=== PATIENT | female | born 1930 | race Caucasian/White ===

== ENCOUNTER → 2017-07-11 | Outpatient (CLI) | payer OTHER, MEDICARE | LOC: FIMAGING 08:17 | PROVIDERS: ATTEND Internal Medicine | DX: M51.36 Other intervertebral disc degeneration, lumbar region (principal); M51.34 Other intervertebral disc degeneration, thoracic region; M51.27 Other intervertebral disc displacement, lumbosacral region; M99.73 Connective tissue and disc stenosis of intervertebral foramina of lumbar region ==

== ENCOUNTER → 2017-11-06 | Outpatient (CLI) | payer OTHER, MEDICARE | LOC: BMCIMAGING 12:19 | PROVIDERS: ATTEND Internal Medicine | DX: M46.96 Unspecified inflammatory spondylopathy, lumbar region (principal) ==

== ENCOUNTER 2017-11-09 11:16 | Emergency (ER) | payer OTHER, MEDICARE ==
--- NOTE | 2017-11-09 13:00 | EDPHY ---
H & P Stated Complaint: pelvic pain Time Seen by Provider: 11/09/17 12:34 HPI/ROS: CHIEF COMPLAINT: Buttock and hip pain HISTORY OF PRESENT ILLNESS: 87-year-old female lives by herself at the [facility] that 4 days ago she was with family members at a family affair, sustained a purely mechanical fall when she tripped on her dog landing on her buttock. This was not a syncopal episode. This was witnessed by family members who are here with her. There is no head injury. The next day she complained of lower back pain was seen at [facility] had negative lumbar spine x-rays and discharged. Family has been staying with her at her independent living facility. Patient complaining of inferior buttock pain and hip pain ever since. She is able to bear weight albeit with pain. She is requesting imaging and analgesia. PRIMARY CARE PROVIDER: Dr. Pascual Julien REVIEW OF SYSTEMS: A ten point review of systems was performed and is negative with the exception of the items mentioned in the HPI PAST MEDICAL/SURGICAL HISTORY: no anticoagulant use, no relevant medical/ surgical history SOCIAL HISTORY: Lives at the independent living facility at [facility] PHYSICAL EXAM 1) GENERAL: Well-developed, well-nourished, alert and oriented. Appears to be in no acute distress. Answering questions appropriately. 2) HEAD: Normocephalic, atraumatic 3) HEENT: Pupils equal, round, reactive to light bilaterally. Negative Horners. Nasopharynx, oropharynx, clear. No deformity or angulation of nose. No septal hematoma. No rhinorrhea. No oral trauma. Ears bilaterally with normal tympanic membranes. No hemotympanum. No fluid or blood in the external auditory canal. No raccoon eyes. No Cordero sign. 4) NECK: No cervical collar is on. Posterior cervical spine is nontender, no stepoff, no effusion. Full range of motion which does not elicit any midline cervical spine pain, no posterior midline tenderness, no step-off. 5) LUNGS: Clear to auscultation bilaterally, no wheezes, no rhonchi, no retractions. No obvious signs of trauma. No chest wall pain. No flaring, no grunting. Moving symmetrically. No crepitus. 6) HEART: [Regular rate and rhythm, 7) ABDOMEN: No guarding, no rebound, no focal tenderness, no peritoneal signs, no signs of trauma, no ecchymosis 8) MUSCULOSKELETAL: The no visible signs of trauma to her lower extremities. She is tender to palpation bilateral hips and bilateral inferior pubic ramus location. No crepitus. No shortening no deformity no malrotation. DP PT pulses present and brisk bilaterally. Remainder bilateral lower extremities is nontender with no signs of trauma. Remainder of musculoskeletal examination is unremarkable, otherwise, Moving all extremities, no focal areas of tenderness, no obvious trauma. 9) BACK: No midline vertebral tenderness, no fluctuance, no step-off, no obvious trauma, no visual or palpable abnormality. 10) SKIN: No laceration. No abrasion DIFFERENTIAL DIAGNOSIS: In no particular include but limited to fracture, sprain , strain, pubic ramus fracture, dislocation - Personal History Current Tetanus/Diphtheria Vaccine: Unsure Current Tetanus Diphtheria and Acellular Pertussis (TDAP): Unsure - Medical/Surgical History Hx Asthma: No Hx Chronic Respiratory Disease: No Hx Diabetes: No Hx Cardiac Disease: No Hx Renal Disease: No Hx Cirrhosis: No Hx Alcoholism: No Hx HIV/AIDS: No Hx Splenectomy or Spleen Trauma: No Other PMH: denies - Social History Smoking Status: Former smoker Constitutional: Initial Vital Signs Temperature (C) 36.5 C 11/09/17 11:22 Heart Rate 97 11/09/17 11:22 Respiratory Rate 18 11/09/17 11:22 Blood Pressure 167/82 H 11/09/17 11:22 O2 Sat (%) 87 L 11/09/17 11:22 O2 Delivery Mode Room Air O2 (L/minute) 2 Allergies/Adverse Reactions: No Known Allergies Allergy (Unverified 11/09/17 11:22) Home Medications: Medication Instructions Recorded Hydrocodone/APAP 5/325 [[place] 1 tab PO Q6 PRN #10 tab 11/09/17 5/325 (RX)] Ibuprofen 11/09/17 Tylenol 325mg (*) 11/09/17 traMADol 11/09/17 Medical Decision Making - Diagnostics Imaging Results: Images reviewed by myself ED Course/Re-evaluation: 1:37 p.m.: Patient's x-ray demonstrates no definitive fracture. She remains tender and same location. Will obtain noncontrast CT of the pelvis re- evaluate. I have also spoken with the case finishing machine adjuster to consult with this patient regarding home care, activities of daily living and similar. 2:33 p.m. the patient was re-evaluated with serial examinations. I discussed her imaging studies showing a nondisplaced sacral fracture. She remains neurologically intact in the lower extremities. I had a lengthy discussion with the patient and family members. I also spoke with the patient's niece who is a controller instructor in [place] and is also her power of patent prosecution attorney. The case finishing machine adjuster was involved in this case. The nieces are able to provide in-home 24 hr care for the next 2 weeks and they do not feel they necessitate further in- home care or nursing assistance. Patient would like to be discharged. I have discussed providing a prescription for Percocet, discussed the risks and benefits of this, recommend increasing fiber intake. Admission was offered however they feel comfortable being discharged home. Care of patient under supervision of secondary supervising physician Dr Heredia. Departure - Departure Disposition: Home, Routine, Self-Care Clinical Impression: Sacral fracture Condition: Good Instructions: Sacral Fracture (ED) Additional Instructions: Seek medical attention if you develop new or worsening pain, if you develop bladder or bowel dysfunction, numbness around your perineum, foot drop, or any other symptoms that concern you. Referrals: Christopher Franco MD [Medical Doctor] - 2-3 days, call for appt. Prescriptions: Hydrocodone/APAP 5/325 [Rac[place] 5/325 (RX)] 1 tab PO Q6 PRN #10 tab PRN Reason: Pain, Severe
[2017-11-09 15:17] VITALS: BP 145/66; PULSE 84; RESP 16; TEMP 98.2; O2SAT 98
--- NOTE | 2017-11-09 15:42 | ASMTCMCOM ---
CM Note CM Note Notes: Pt presented to the ED after she had a fall and sustained a fracture to her sacrum. Patient lives in Independent Living at [facility]. Pt has two nieces who are at bedside in the ED and they say that between the two of them and the pt's daughter, patient will have someone staying with her 06/04 for the two weeks. They also mentioned they plan on talking w/Alejandra (Syrup Mixer Assistant) at [facility] tomorrow and see if there are any other services or assistance they might need to provide. CM available for further assistance if needed. Date Signed: 11/09/2017 03:42 PM Electronically Signed By:Skylar Carpenter RN
--- NOTE | 2017-11-09 16:02 | ASDISCHSUM ---
Discharge Information Plan Status:Home with No Needs Medically Cleared to Leave: Discharge Date:11/09/2017 03:17 PM CM D/C Disposition:Home, Routine, Self-Care ADT D/C Disposition:Home, Routine, Self-Care Projected Discharge Date:11/09/2017 03:17 PM Transportation at D/C:Family Discharge Delay Reason: Follow-Up Date:11/09/2017 03:17 PM Discharge Slot: Final Diagnosis: Placement Information Patient Contact Information Contact Name:MARICHUY Relationship:Rachel Address:[address] [place] [address] Work Phone: City:[facility] Phone: [facility]/Zip Code:[place] [address] Email: Financial Information Financial Class:Medicare Primary Plan Desc:MEDICARE OUTPATIENT Primary Plan Number:[id number] Secondary Plan Desc:AARP/MDR SUPPLEMENT Secondary Plan Number:[id number] Assessment Information [facility] CM Progress Note CM Note CM Note Notes: Pt presented to the ED after she had a fall and sustained a fracture to her sacrum. Patient lives in Independent Living at [facility]. Pt has two nieces who are at bedside in the ED and they say that between the two of them and the pt's daughter, patient will have someone staying with her 24/7 for the two weeks. They also mentioned they plan on talking Kevin (Overnight Cashier) at [facility] tomorrow and see if there are any other services or assistance they might need to provide. CM available for further assistance if needed. Date Signed: 11/09/2017 03:42 PM Electronically Signed By:Skylar Carpenter RN LACE TODD Acuity / Level of Answers: No Care: Did the patient have an inpatient admission? # of Emergency department Answers: 1-2 visits in the last 6 months Score: 1 Date Signed: 11/09/2017 04:00 PM Electronically Signed By:Skylar Carpenter RN Intervention Information
== END 2017-11-09 15:17 | disposition home or self-care (01) ==
DX: S32.10XA Unspecified fracture of sacrum, initial encounter for closed fracture (principal); Z87.891 Personal history of nicotine dependence; W01.0XXA Fall on same level from slipping, tripping and stumbling without subsequent striking against object, initial encounter

== ENCOUNTER 2017-11-11 12:48 | Inpatient (IN) | payer OTHER, MEDICARE ==
--- NOTE | 2017-11-11 13:40 | EDPHY ---
H & P Stated Complaint: sacral fx seen 2 days ago/pain unmaneagable Time Seen by Provider: 11/11/17 13:39 HPI/ROS: CHIEF COMPLAINT: Intractable back pain HISTORY OF PRESENT ILLNESS: The patient presents to the ED with complaints of intractable back pain. She was diagnosed with a sacral fracture several days ago. She has been taking narcotic medications at home however has been unable to walk secondary to her pain. Her pain is causing her and inability to eat and drink. She presents to the ED requesting further evaluation. The patient has no significant past medical history and takes no regular medications. She is not anticoagulated. Patient had been scheduled to see our interventional radiologist is an outpatient however was unable to wait to receive further care. The patient complains primarily of right sacral pain. She denies any acute numbness or weakness. She denies any recent fever, cough or congestion. REVIEW OF SYSTEMS: A comprehensive 10 point review of systems is otherwise negative aside from elements mentioned in the history of present illness. Source: Patient Exam Limitations: No limitations - Personal History Current Tetanus/Diphtheria Vaccine: No - Medical/Surgical History Hx Asthma: No Hx Chronic Respiratory Disease: No Hx Diabetes: No Hx Cardiac Disease: No Hx Renal Disease: No Hx Cirrhosis: No Hx Alcoholism: No Hx HIV/AIDS: No Hx Splenectomy or Spleen Trauma: No Other PMH: sacral fx - Social History Smoking Status: Former smoker - Physical Exam Exam: General Appearance: Elderly female, mild discomfort secondary to pain Eyes: Pupils equal and round no pallor or injection ENT, Mouth: Mucous membranes moist Respiratory: There are no retractions, lungs are clear to auscultation Cardiovascular: Regular rate and rhythm Gastrointestinal: Abdomen is soft and nontender, no masses, bowel sounds normal Neurological: A&O, normal motor function, normal sensory exam, normal cranial nerves Skin: Warm and dry, no rashes Musculoskeletal: Tenderness to palpation in the right sacroiliac area Extremities: symmetrical, full range of motion Constitutional: Initial Vital Signs Temperature (C) 36.7 C 11/11/17 12:55 Heart Rate 99 11/11/17 12:55 Respiratory Rate 19 11/11/17 12:55 Blood Pressure 182/90 H 11/11/17 12:55 O2 Sat (%) 93 11/11/17 12:55 O2 Delivery Mode Room Air Allergies/Adverse Reactions: No Known Allergies Allergy (Verified 11/11/17 12:54) Home Medications: Medication Instructions Recorded Cholecalciferol Vit D3 [Vitamin D3 1,000 units PO DAILY 11/11/17 (*)] Hydrocodone/Acetaminophen [[place] 1 tab PO Q3-4PRN PRN 11/11/17 5/325 (*)] Medical Decision Making ED Course/Re-evaluation: ED course: I reviewed the results of the patient's CT scan. She had an IV established. She received IV normal saline for dehydration. She received IV narcotic medications and a lidocaine patch. Consultation was made with Dr. Tri Wei from interventional radiology who has reviewed the patient's CT scan and does feel the patient may benefit from a sacralplexy. The patient will require admission to the hospital. Consultation was made with Dr. Javier who will admit the patient. Differential Diagnosis: Differential diagnosis considered includes sacral fracture, pelvic fracture, sciatica - Data Points Medications Given: Discontinued Medications Sodium Chloride (Ns) 1,000 mls @ 0 mls/hr IV EDNOW ONE; Wide Open PRN Reason: Protocol Stop: 11/11/17 13:49 Last Admin: 11/11/17 14:18 Dose: 1,000 mls Miscellaneous Medication (Icy Hot Lidocaine/Menthol 4%/1% Patch) 1 patch TD EDNOW ONE Stop: 11/11/17 13:49 Last Admin: 11/11/17 14:18 Dose: 1 patch Departure - Departure Disposition: [facility] Inpatient Acute Clinical Impression: Sacral fracture, closed Condition: Good
[2017-11-11] MEDS ORDERED: NS 1,000 ML IV ONE (13:48)
[2017-11-11] MEDS ORDERED: LIDOCAINE 4%/MENTHOL 1% PATCH TD ONE (13:48)
[2017-11-11] MEDS ORDERED: ONDANSETRON 4 MG/2 ML VIAL IVP PRN (14:17)
[2017-11-11] MEDS ORDERED: ONDANSETRON DISINTEGRATING 4 MG TAB PO PRN (14:17)
[2017-11-11] MEDS ORDERED: ACETAMINOPHEN 325 MG TAB PO PRN (14:17)
[2017-11-11 14:22] LABS: PLATELET COUNT 214 10^3/uL (150-400)
--- NOTE | 2017-11-11 15:49 | GHP ---
[f rep st] HISTORY AND PHYSICAL DATE OF ADMISSION: 11/11/2017 CHIEF COMPLAINT: Pain. HISTORY OF PRESENT ILLNESS: This is an 87-year-old female who presents with marked pain and difficul ty ambulating or sitting secondary to pain. Patient had a mechanical fall on 11/05/2017 at her resid ence at the [facility], presented to the emergency department on 11/09 with complaints of buttock and h ip pain. Patient was evaluated in the emergency department and had a CT of her pelvis performed, whi ch showed minimally displaced right sacral fracture at the level of the S1, S2 and a nondisplaced fra cture of the left sacrum at S1. Patient was stabilized and discharged home. She returned home and i s continuing to have marked difficulty ambulating or remaining comfortable in any position besides ly ing flat. Therefore, re-presented for evaluation. Patient has had decreased oral intake secondary t o discomfort and her limitation in activity. She denies any subjective fevers or chills. Denies jennifer st pain. Denies shortness of breath. Denies nausea or vomiting. Denies dysuria or changes in her manuel wel habits. PAST MEDICAL HISTORY: Baseline cognitive deficit. SOCIAL HISTORY: Patient takes a [place] several evenings a week. Denies tobacco. Denies illicit drugs or marijuana. FAMILY HISTORY: Negative for heart disease. She has very long living healthy genes. ADVANCED DIRECTIVES: Patient is do not resuscitate. Her niece would be her medical decision maker. REVIEW OF SYSTEMS: A 10-point review of systems is negative with the exception of that reported in t he HPI. PHYSICAL EXAMINATION: VITAL SIGNS: Blood pressure 131/65, heart rate 72, respiratory rate 16, satur ating 93% on room air. Afebrile at 36.7. GENERAL: This is a thin-appearing elderly female lying fl at in bed. HEENT: Notable for moist mucous membranes. Eye exam is negative for any icterus. CARDIAC: Patient is regular rate and rhythm. PULMONARY: Clear to auscultation bilaterally. GASTROINTESTINAL: Positive bowel sounds. ABDOMEN: Soft and thin, nontender. MUSCULOSKELETAL: Negative for any lower extremity edema. SKIN: Negative for any rashes. NEUROLOGIC: Patient is alert and oriented x3. Does h ave some memory deficits on my interview. PSYCHIATRIC: She is pleasant on interview and examination. DATA: CT of the pelvis, which I personally reviewed and interpreted, shows bilateral sacral fracture s, right-sided slightly displaced per Radiology. LABORATORY: White count 8, hematocrit 43.1, platelets of 214, creatinine 0.7, sodium 145. ASSESSMENT AND PLAN: An 87-year-old female presenting with a subacute sacral fracture. 1. Sacral fracture status post a fall 6 days ago. Patient has uncontrollable pain, is unable to amb ulate or sit comfortably. We have asked Dr. Wei from Interventional Radiology to review the films an d see if she is potentially amenable to sacroplasty. We will admit the patient for pain control, PT, OT and IR evaluation. Anticipate the patient will need to be discharged to a rehab facility for rec overy. 2. Baseline cognitive deficit. It sounds per the family, the patient has had some memory issues and was being recommended for assisted living by the [facility]. Will provide high-level supportive care, speech therapy and follow the patient while inpatient. She will need an initial stay at rehab but yue jones likely will be discharged to go back to assisted living at the [facility]. 3. Prophylaxis with Lovenox. DIET: Regular. DISPOSITION: I expect greater than 2 midnights as the patient is quite elderly at presentation requi ring IV pain medications and therapy as well as potential Interventional Radiology intervention for p ain control. I have discussed the case with the emergency room physician. Patient will be triaged t o the medical-surgical floor for care. /[id number]/MODL
[2017-11-11] MEDS: HYDROCODONE/APAP 5/325 TAB PO PRN (17:40)
[2017-11-11] MEDS: PATCH REMOVAL 1 EA PATCH TD SCH (22:50)
[2017-11-12] MEDS: NS 1,000 ML IV SCH ×2 (03:42→23:41)
[2017-11-12 05:32] LABS: PLATELET COUNT 214 10^3/uL (150-400)
[2017-11-12] MEDS: HYDROCODONE/APAP 5/325 TAB PO PRN ×4 (05:59→20:32)
--- NOTE | 2017-11-12 07:18 | PDMN ---
Medical Necessity Medical necessity: Pt meets IP criteria per MD; est los >2 mn for eval/tx of dehydration & sacral fx s/p fall; pt unable to ambulate or sit comfortably secondary to uncontrollable pain; admit for IV pain meds, IVFs, possible IR intervention & therapies; comorbid advanced age & cognitive deficit; per H&P & order 11/11/17
[2017-11-12] MEDS: CHOLECALCIFEROL VIT D3 1,000 UNITS TAB PO SCH (08:08)
[2017-11-12] MEDS: LIDOCAINE 4%/MENTHOL 1% PATCH TD SCH (08:09)
[2017-11-12] MEDS: ENOXAPARIN 40 MG/0.4 ML SYR SC SCH (08:09)
--- NOTE | 2017-11-12 14:55 | HOSPPROG ---
Hospitalist Progress Note Assessment/Plan: # acute sacral fracture-patient with severe pain unable to comfortably ambulate or complete ADLs CT pelvis (personally reviewed and interpreted) right and left sacral fracture Oxygen saturations at 93% on room air - NPO after midnight tonight for sacral plasty - continue p.r.n. Pain meds - continue lidocaine patch - continue PT OT - planning for rehabilitation dispo after sacral plasty # severe protein calorie malnutrition- BMI 18- had nourishment with meals # prophylaxis-Lovenox (hold for procedure) # diet regular-NPO after midnight # disposition greater than 2 midnights as requiring intervention for sacral fracture and pain medication titration Subjective: Pain persists Objective: Vital Signs Temp Pulse Resp BP Pulse Ox 37.1 C 76 18 131/73 H 93 11/12/17 11:15 11/12/17 11:15 11/12/17 11:15 11/12/17 11:15 11/12/17 11:15 Laboratory Results 11/12/17 05:10 11/12/17 05:10 11/11/17 11/12/17 11/13/17 05:59 05:59 05:59 Intake Total 1875 Output Total 50 Balance 1825 - Physical Exam Constitutional: cachectic Eyes: anicteric sclera Ears, Nose, Mouth, Throat: moist mucous membranes Cardiovascular: regular rate and rhythym Respiratory: no respiratory distress Gastrointestinal: normoactive bowel sounds Genitourinary: no bladder fullness Skin: warm Musculoskeletal: No asymmetric calves Neurologic: AAOx3 Psychiatric: interacting appropriately Lymph, Heme, Immunologic: no cervical LAD ICD10 Worksheet Patient Problems: Problems Problem Status Onset Sacral fracture, closed Acute
--- NOTE | 2017-11-12 18:11 | ASMTCMCOM ---
CM Note CM Note Notes: Pt is here with a sacral fracture and will get a sacroplasty on Thursday. Pt lives at the [facility], will likely need SNF at dc. Pt had cog eval and scored 14/30 on SLUMS, mod to severe cog decline. CM will speak w/surinderray José who is MDPOA regarding rehab. PT/OT waiting to eval pt after sacroplasty. DC Plan: TBD Date Signed: 11/12/2017 06:10 PM Electronically Signed By:Altagracia Powell RN
[2017-11-12] MEDS: PATCH REMOVAL 1 EA PATCH TD SCH (20:32)
[2017-11-13] MEDS: HYDROCODONE/APAP 5/325 TAB PO PRN ×3 (01:25→21:40)
[2017-11-13] MEDS: LIDOCAINE 4%/MENTHOL 1% PATCH TD SCH (08:25)
[2017-11-13 10:07] LABS: INR 1.06 (0.83-1.16)
--- NOTE | 2017-11-13 10:24 | ASMTCMCOM ---
CM Note CM Note Notes: Spoke w/pt's niece Essie, pt will likely need SNF before returning to the [facility]. Would like referrals sent to [facility] and [facility]. CM also called other niray Dutta ([phone]), who is MDPOA and left message DC Plan: SNF Date Signed: 11/13/2017 10:23 AM Electronically Signed By:Altagracia Powell RN
[2017-11-13] MEDS ORDERED: PNEUMOC 13-VAL CONJ-DIP CRM/PF 0.5 ML SYR IM ONE ×2 (10:54→22:00)
[2017-11-13] MEDS: CHOLECALCIFEROL VIT D3 1,000 UNITS TAB PO SCH (11:34)
--- NOTE | 2017-11-13 11:38 | HOSPPROG ---
Hospitalist Progress Note Assessment/Plan: # Acute sacral fracture-patient with severe pain unable to comfortably ambulate or complete ADLs- pain unchanged overnight CT pelvis (personally reviewed and interpreted) right and left sacral fracture Oxygen saturations at 93% on room air - NPO for sacral plasty today - continue p.r.n. Pain meds - continue lidocaine patch - continue PT OT - planning for rehabilitation dispo after sacral plasty # baseline cognitive deficits - has not struggled with sundowning - cont supportive care # severe protein calorie malnutrition- BMI 18- had nourishment with meals # prophylaxis-Lovenox (hold for procedure) # diet regular-NPO after midnight # disposition greater than 2 midnights as requiring intervention for sacral fracture and pain medication titration I have discussed the case with Dr. Wei - plan for sacral plasty today Subjective: pain persists- mouth dry Objective: Vital Signs Temp Pulse Resp BP Pulse Ox 36.9 C 85 16 148/83 H 96 11/13/17 08:00 11/13/17 08:00 11/13/17 08:00 11/13/17 08:00 11/13/17 08:00 Laboratory Results 11/12/17 05:10 11/12/17 05:10 11/12/17 11/13/17 11/14/17 05:59 05:59 05:59 Intake Total 1875 2500 Output Total 50 2 Balance 1825 2498 PT 14.0 SEC (12.0-15.0) 11/13/17 09:54 INR 1.06 (0.83-1.16) 11/13/17 09:54 - Physical Exam Constitutional: no apparent distress Eyes: anicteric sclera Ears, Nose, Mouth, Throat: moist mucous membranes Cardiovascular: regular rate and rhythym Respiratory: no respiratory distress Gastrointestinal: normoactive bowel sounds Genitourinary: no bladder fullness Skin: warm Musculoskeletal: No asymmetric calves Neurologic: AAOx3 Psychiatric: poor memory Lymph, Heme, Immunologic: no cervical LAD ICD10 Worksheet Patient Problems: Problems Problem Status Onset Sacral fracture, closed Acute
[2017-11-13] MEDS ORDERED: BUPIVACAINE 0.25% 30 ML SDV ONE (13:37)
[2017-11-13] MEDS ORDERED: LIDOCAINE 1% 300 MG/30 ML SDV ONE (13:38)
[2017-11-13] MEDS ORDERED: MIDAZOLAM 2 MG/2 ML VIAL ONE (13:54)
[2017-11-13] MEDS ORDERED: FLUMAZENIL 0.5 MG/5 ML MDV IVP ONE (13:54)
[2017-11-13] MEDS ORDERED: NALOXONE HCL 0.4 MG/ML INJ ONE (13:54)
[2017-11-13] MEDS ORDERED: fentaNYL 100 MCG/2 ML INJ ONE (13:55)
[2017-11-13] MEDS ORDERED: NS 1,000 ML IV SCH (14:00)
[2017-11-13] MEDS ORDERED: NALOXONE HCL 0.4 MG/ML INJ IVP PRN (14:00)
[2017-11-13] MEDS ORDERED: fentaNYL 100 MCG/2 ML INJ IVP PRN (14:00)
[2017-11-13] MEDS ORDERED: FLUMAZENIL 0.5 MG/5 ML MDV IVP PRN (14:00)
[2017-11-13] MEDS ORDERED: MIDAZOLAM 2 MG/2 ML VIAL IVP PRN (14:00)
[2017-11-13] MEDS ORDERED: MEPERIDINE 25 MG/ML SYR IVP PRN (14:00)
--- NOTE | 2017-11-13 15:58 | PDPROPOC ---
Sedation Plan of Care Sedation Plan of Care: vital signs stable, mental status noted, patient educated of risks, benefits, alternatives, patient can tolerate sedation ASA Classification: ASA 3 Planned drugs: fentanyl, midazolam Mallampati Score: Class 2 Mallampati Reference Image: Patient passed 3-3-2 rule?: Yes
--- NOTE | 2017-11-13 15:59 | PDRADPN ---
Radiology Procedure Note Date of Procedure: 11/13/17 Radiologist: Tri Wei Anesthesia: IV Sedation Pre-op Diagnosis: bilateral sacral fractures Post-op Diagnosis: same Indication: severe pain Procedure: bilateral sacroplasty Finding(s): excellent RT cement filling. Some LT cement filling. Inf/Abcess present in the surg proc area at time of surgery?: No
[2017-11-14] MEDS: HYDROCODONE/APAP 5/325 TAB PO PRN ×3 (05:23→13:31)
[2017-11-14] MEDS: NS 1,000 ML IV SCH ×2 (06:35→17:05)
[2017-11-14] MEDS: PATCH REMOVAL 1 EA PATCH TD SCH (06:46)
[2017-11-14] MEDS: LIDOCAINE 4%/MENTHOL 1% PATCH TD SCH (09:04)
[2017-11-14] MEDS: CHOLECALCIFEROL VIT D3 1,000 UNITS TAB PO SCH (09:07)
[2017-11-14] MEDS: ENOXAPARIN 40 MG/0.4 ML SYR SC SCH (10:48)
[2017-11-14] MEDS ORDERED: POLYETHYLENE GLYCOL 3350 17 GM PKT PO PRN (12:46)
[2017-11-14] MEDS ORDERED: LACTULOSE 20 GM/30 ML UDCUP PO PRN (12:46)
[2017-11-14] MEDS ORDERED: BISACODYL 10 MG SUPP PR PRN (12:46)
[2017-11-14] MEDS ORDERED: MAGNESIUM HYDROXIDE 30 ML UDCUP PO PRN (12:46)
[2017-11-14] MEDS: SENNOSIDES/DOCUSATE SODIUM TAB PO SCH ×2 (13:31→20:09)
[2017-11-14] MEDS ORDERED: oxyCODONE IR 5 MG TAB PO PRN (16:42)
[2017-11-14] MEDS: ACETAMINOPHEN 500 MG TAB PO SCH (17:03)
--- NOTE | 2017-11-14 18:14 | SOAPPROG ---
SOAP Progress Note Assessment/Plan: Assessment: 1. Post sacroplasty: Again, according to Essie, patient's niece, back pain is significantly better. What's left is bilateral posterior leg pain, which pre -existed recent fall. 2. Osteoporosis 3. Posterior thigh pain Plan: 1. It makes sense that now that back pain is taken away, patient is more focused on leg pain, although she's having a hard time differentiating the two. 2. Leg pain apparently pre-existed fall, and may be aggravated by fall due to DDD. 3. Can do CHER of lower back if clinically needed just to get patient more mobile. 4. Recommend outpatient osteoporosis management./ 5. Discussed with Hansa, who is patient's MPA, and Essie, patient's niece currently in the room. 11/14/17 18:14 Subjective: Patient overall is a poor historian, does not remember yesterday's procedure and her pain history. Patient's niece Essie was in room, who has been with the patient since the fall. Essie described the entire course with me: Patient fell. Had severe pain. Xray done at that time did not show any fractures. Three nieces took turns taking care of her first three nights. Essie describes pain at that time as excruciating, lower back, with patient saying "I just want to go." Eventually, they took patient to ER, where CT showed bilateral sacral insufficiency fractures. Patient orginally had an appoint with me as outpatient visiting sacroplasty, but then came into ER because of pain. Since sacroplasty procedure yesterday, Essie says the back pain is significantly improved (although patient does not remember). However, patient is complaining of bilateral posterior thigh pain, which Essie states was pre- existing the fall. Objective: Vital Signs Temp Pulse Resp BP Pulse Ox 37.0 C 83 16 159/79 H 90 L 11/14/17 15:15 11/14/17 15:15 11/14/17 15:15 11/14/17 15:15 11/14/17 15:15 Laboratory Results 11/14/17 05:29 11/12/17 05:10 11/13/17 11/14/17 11/15/17 05:59 05:59 05:59 Intake Total 2500 1650 1537 Output Total 2 Balance 2498 1650 1537 PT 14.0 SEC (12.0-15.0) 11/13/17 09:54 INR 1.06 (0.83-1.16) 11/13/17 09:54 Incisions look good. Patient is apprehensive to sit up to eat because of pain when sitting up. ICD10 Worksheet Patient Problems: Problems Problem Status Onset Sacral fracture, closed Acute
[2017-11-14] MEDS: traMADol 50 MG TAB PO PRN (18:17)
[2017-11-14] MEDS ORDERED: CHOLECALCIFEROL VIT D3 1,000 UNITS TAB PO SCH (19:36)
--- NOTE | 2017-11-14 19:36 | HOSPPROG ---
Hospitalist Progress Note Assessment/Plan: # Acute sacral fracture- s/p sacroplasty per IR, POD #1 - Pain control: scheduled tylenol, prn tramadol, prn oxy as last resort - continue lidocaine patch - continue PT OT - planning for rehabilitation dispo # baseline cognitive deficits - has not struggled with sundowning - cont supportive care # severe protein calorie malnutrition- BMI 18- had nourishment with meals # prophylaxis-Lovenox # diet regular # disposition greater than 2 midnights as requiring intervention for sacral fracture and pain medication titration I have discussed the case with RN Subjective: Pt doing ok, pain is 03/23. Frequently asks about positioning in bed. Tolerating po. Objective: Vital Signs Temp Pulse Resp BP Pulse Ox 36.6 C 83 18 170/83 H 92 11/14/17 19:11 11/14/17 19:11 11/14/17 19:11 11/14/17 19:11 11/14/17 19:11 Laboratory Results 11/14/17 05:29 11/12/17 05:10 11/13/17 11/14/17 11/15/17 05:59 05:59 05:59 Intake Total 2500 1650 1537 Output Total 2 Balance 2498 1650 1537 PT 14.0 SEC (12.0-15.0) 11/13/17 09:54 INR 1.06 (0.83-1.16) 11/13/17 09:54 - Physical Exam Constitutional: no apparent distress Eyes: PERRL Ears, Nose, Mouth, Throat: moist mucous membranes Cardiovascular: regular rate and rhythym Respiratory: no respiratory distress Gastrointestinal: normoactive bowel sounds Skin: warm Psychiatric: interacting appropriately, poor memory ICD10 Worksheet Patient Problems: Problems Problem Status Onset Sacral fracture, closed Acute
[2017-11-14] MEDS: CALCIUM CARBONATE 500 MG TAB PO SCH (20:03)
[2017-11-14 23:39] VITALS: RESP 16
[2017-11-15] MEDS: ACETAMINOPHEN 500 MG TAB PO SCH ×2 (03:35→10:02)
[2017-11-15] MEDS: PATCH REMOVAL 1 EA PATCH TD SCH (03:54)
[2017-11-15] MEDS: LIDOCAINE 4%/MENTHOL 1% PATCH TD SCH (08:11)
[2017-11-15] MEDS: SENNOSIDES/DOCUSATE SODIUM TAB PO SCH (08:12)
[2017-11-15] MEDS: CALCIUM CARBONATE 500 MG TAB PO SCH (08:13)
[2017-11-15] MEDS: ENOXAPARIN 40 MG/0.4 ML SYR SC SCH (08:13)
[2017-11-15] MEDS: traMADol 50 MG TAB PO PRN ×2 (08:19→15:42)
[2017-11-15] MEDS: NS 1,000 ML IV SCH (09:29)
[2017-11-15] MEDS ORDERED: ACETAMINOPHEN 500 MG TAB PO SCH (12:00)
[2017-11-15 12:10] VITALS: BP 142/66; PULSE 96; TEMP 97.3; O2SAT 90
--- NOTE | 2017-11-15 14:35 | PDIAF ---
- Diagnosis Diagnosis: fall, sacral fracture, s/p sacroplasty, osteopenia Code Status: Do Not Resuscitate - Medication Management Discharge Medications: Medications to Continue on Transfer Acetaminophen [Tylenol ES 500 mg (*)] 1,000 mg PO TID@0800,1200,2000 #90 tab 12/30 [Last Taken Unknown] Calcium Carbonate [Oyster Shell Calcium 500 mg (*)] 500 mg PO BID #60 tab [Last Taken Unknown] Cholecalciferol Vit D3 [Vitamin D3 (*)] 2,000 units PO DAILY tab 11/15/17 [ Last Taken Unknown] traMADol [Ultram 50 mg (*)] 25 - 50 mg PO Q6HRS PRN #30 tab 11/15/17 [Last Taken Unknown] Discharge Medications: Refer to the Discharge Home Medication list for PRN reason. - Orders Services needed: Registered Nurse, Physical Therapy, Occupational Therapy Diet Recommendation: no restrictions on diet - Follow Up Care Current Providers and Referrals: Pascual Julien MD [Primary Care Provider] - As per Instructions
--- NOTE | 2017-11-15 14:56 | ASMTLACE ---
LACE Length of stay for Answers: 4-6 days current admission Acuity / Level of Answers: Yes Care: Did the patient have an inpatient admission? Comorbidities - select Answers: Dementia all that apply # of Emergency department Answers: 1-2 visits in the last 6 months Score: 11 Date Signed: 11/15/2017 02:55 PM Electronically Signed By:Bina Christopher RN
--- NOTE | 2017-11-15 14:58 | ASMTCMCOM ---
CM Note CM Note Notes: Chart reviewed. Patient has been medically cleared for SNF. Spoke to [facility] and they will arrange transportation at 4 pm. Attempted to call Luzmaria her POA but the is no name on message so left generally contact for CM and called Essie her other contact who will come to see the patient. All orders via allscripts. RN to call report line. Plan to SNF. Date Signed: 11/15/2017 02:58 PM Electronically Signed By:Bina Christopher RN
--- NOTE | 2017-11-15 15:41 | ASMTCMCOM ---
CM Note CM Note Notes: Spoke with both nieces and they are in agreement with transfer. The patient is complaining of some pain and the nurse is to medicate her prior to transport. CM available should needs arise. Patient has her own wheelchair here and will transfer in that to [facility], Date Signed: 11/15/2017 03:41 PM Electronically Signed By:Bina Christopher RN
--- NOTE | 2017-11-15 16:54 | ASDISCHSUM ---
Discharge Information Plan Status:SNF Medically Cleared to Leave:11/14/2017 Discharge Date:11/15/2017 04:15 PM CM D/C [facility]position[facility] ADT D/C Disposition:[facility] Projected Discharge Date:11/15/2017 11:00 AM Transportation at D/C:Wheelchair Van Discharge Delay Reason: Follow-Up Date:11/15/2017 11:00 AM Discharge Slot: Final Diagnosis: Placement Information Referral Type:*Fdc/SNF Referral ID:[id number] Provider Name:[facility] Address 1:[address] Address 2: City:[place] Selection Factors: State:[place] Patient Contact Information Contact Name:MARICHUY Relationship:Jessy Address:[address] [place] [address] Work Phone: [facility]:[place] Alternate Phone: [facility]/Zip Code:[place] [address] Email: Financial Information Financial Class:Medicare Primary Plan Desc:MEDICARE INPATIENT Primary Plan Number:[id number] Secondary Plan Desc:JANEP/VALERIA SUPPLEMENT Secondary Plan Number:[id number] Assessment Information LACE LACE Length of stay for Answers: 4-6 days current admission Acuity / Level of Answers: Yes Care: Did the patient have an inpatient admission? Comorbidities - select Answers: Dementia all that apply # of Emergency department Answers: 1-2 visits in the last 6 months Score: 11 Date Signed: 11/15/2017 02:55 PM Electronically Signed By:Bina Christopher RN [facility] CM Progress Note CM Note CM Note Notes: Pt is here with a sacral fracture and will get a sacroplasty on Thursday. Pt lives at the [facility], will likely need SNF at dc. Pt had cog eval and scored 14/30 on SLUMS, mod to severe cog decline. CM will speak w/jessy Salazarny who is [facility] regarding rehab. PT/OT waiting to eval pt after sacroplasty. DC Plan: TBD Date Signed: 11/12/2017 06:10 PM Electronically Signed By:Altagracia Powell RN [facility] CM Progress Note CM Note CM Note Notes: Spoke w/pt's niece Essie, pt will likely need SNF before returning to the [facility]. Would like referrals sent to [facility] and [facility]. CM also called other jessy Dutta ([phone]), who is [facility] and left message DC Plan: SNF Date Signed: 11/13/2017 10:23 AM Electronically Signed By:Altagracia Powell RN [facility] CM Progress Note CM Note CM Note Notes: Chart reviewed. Patient has been medically cleared for SNF. Spoke to [employer] and they will arrange transportation at 4 pm. Attempted to call Luzmaria her POA but the is no name on message so left generally contact for CM and called Essei her other contact who will come to see the patient. All orders via [employer]way. RN to call report line. Plan to SNF. Date Signed: 11/15/2017 02:58 PM Electronically Signed By:Bina Christopher RN Case Management Discharge Plan Note Case Management Discharge Discharge Order Complete? Answers: Yes Patient to Obtain Answers: Other Notes: [facility] Medications Transportation Arranged Answers: Other Notes: wheelchair Van Transport will Pick (Date 11/15/2017 04:00 PM & Time) Date Signed: 11/15/2017 03:00 PM Electronically Signed By:Bina Christopher RN [facility] CM Progress Note CM Note CM Note Notes: Spoke with both nieces and they are in agreement with transfer. The patient is complaining of some pain and the nurse is to medicate her prior to transport. CM available should needs arise. Patient has her own wheelchair here and will transfer in that to [facility], Date Signed: 11/15/2017 03:41 PM Electronically Signed By:Bina Christopher RN Intervention Information
--- NOTE | 2017-11-15 22:17 | GDS ---
[f rep st] DISCHARGE SUMMARY DISCHARGE DIAGNOSES: 1. Acute sacral insufficiency fracture, status post sacroplasty. 2. Baseline cognitive deficits. 3. Protein-calorie malnutrition. 4. Osteoporosis. CONSULTANTS: Dr. Tri Wei, Interventional Radiology. PROCEDURES: Bilateral sacroplasty performed November 13, 2017, by Dr. Tri Wei. HISTORY: For details, please see history and physical dated November 11, 2017. In brief, the heather bennett is an 87-year-old female with a history of baseline cognitive dysfunction who presented to the [facility] department after a mechanical fall at her residence at the [facility]. Imaging revealed a subacu te sacral fracture, and patient was admitted for pain control and further management. HOSPITAL COURSE: Patient was admitted to the med-surg unit. Interventional Radiology was consulted, and she ultimately underwent sacroplasty with improvement in her pain. She was evaluated by our the [facility] Services who recommended SNF rehab. Her history of osteoporosis was noted, and the patient was started on calcium 500 mg twice daily. Her vitamin D was increased to 2000 units daily from 1000 uni ts given her slightly low vitamin D level of 22. I recommend she follow up with her outpatient [place] [place] care provider for consideration of bisphosphonate injection if she has not already had this. DISPOSITION: Patient is discharged to intermediate facility rehab in stable condition. FOLLOWUP: Dr. Pascual Julien, primary care. MEDICATIONS: DISCHARGE MEDICATIONS: Please see [facility] [employer] (FIG) for completed outpatient medication list. NEW MEDICATIONS ON DISCHARGE include Tylenol 1000 mg p.o. t.i.d.; calcium 500 mg p.o. b.i.d.; choleca lciferol 2000 units p.o. daily; and tramadol 25 to 50 mg p.o. q.6 hours p.r.n., #30, no refills, for breakthrough pain. /[id number]/MODL
== END 2017-11-15 16:15 | DRG 516 ==
LOC: F3E 15:37
PROVIDERS: ADMIT Internal Medicine; ATTEND Hospitalist
PROC: 0QU13JZ Supplement Sacrum with Synthetic Substitute, Percutaneous Approach (ICD-10-PCS; principal; 2017-11-13 16:09)
DX: M80.08XA Age-related osteoporosis with current pathological fracture, vertebra(e), initial encounter for fracture (principal); E46 Unspecified protein-calorie malnutrition; R41.9 Unspecified symptoms and signs involving cognitive functions and awareness; Z68.1 Body mass index [BMI] 19.9 or less, adult
CPT/HCPCS: 92507-GN; 92523-GN; 97161-GP; 97165-GO; 97530-GP; 97535-GO; G0009; G8978-GP-CM; G8979-GP-CK; G8987-GO-CM; G8988-GO-CK; G8989-GO-CM; G9168-GN-CL; G9169-GN-CK; J1650; J2250; J2310; J3010

== ENCOUNTER → 2017-12-07 | Outpatient (CLI) | payer OTHER, MEDICARE | LOC: BMCIMAGING 15:00 | PROVIDERS: ATTEND Internal Medicine | DX: R05 Cough (principal) ==